=== PATIENT | female | born 1950 | race Caucasian/White ===

== ENCOUNTER → 2016-11-09 | Outpatient (REF) | payer MEDICARE, OTHER | LOC: M SFHCWAGY 10:55 | PROVIDERS: ATTEND Nurse Practitioner Family | DX: Z12.4 Encounter for screening for malignant neoplasm of cervix (principal) ==

== ENCOUNTER → 2016-11-09 | Outpatient (CLI) | payer MEDICARE, OTHER ==
--- NOTE | 2016-11-09 12:34 | REPMRS ---
Patient History The patient states she had a clinical breast exam in 10/2016. Patient is postmenopausal. No known family history of cancer. Taking estrogen for 3 years. Digital Woman Screen Mammo: November 09, 2016 - Exam #: [id number] Bilateral CC and MLO view(s) were taken. Technologist: Kristina Duckworth, Technologist Prior study comparison: November 02, 2015, digital woman screen mammo performed at [facility]. October 12, 2014, digital woman screen mammo performed at [facility]. September 26, 2013, digital woman screen mammo performed at [facility]. FINDINGS: There are scattered fibroglandular densities. There has been no change in the appearance of the mammogram from the prior studies. There is a mild amount of scattered fibroglandular density which is fairly symmetric. There is no interval development of dominant mass, architectural distortion, or clustered microcalcification suggestive of malignancy. ASSESSMENT: BI-RADS/ACR category 1 mammogram. Negative. Recommendation Routine screening mammogram in 1 year (for women over age 40). This mammogram was interpreted with the aid of an FDA-approved computer-aided dectection system. Electronically Signed By: Fredy Gordon MD 11/09/16 5030
== END ==
LOC: M WHC 10:37
PROVIDERS: ATTEND Nurse Practitioner Family
DX: Z12.31 Encounter for screening mammogram for malignant neoplasm of breast (principal); Z78.0 Asymptomatic menopausal state; Z79.890 Hormone replacement therapy; Z12.4 Encounter for screening for malignant neoplasm of cervix; Z12.12 Encounter for screening for malignant neoplasm of rectum
CPT/HCPCS: 82270; G0101; G0123; G0202

== ENCOUNTER → 2017-07-24 | Outpatient (CLI) | payer MEDICARE, OTHER | LOC: M RAD 10:56 | DX: H93.11 Tinnitus, right ear (principal) | CPT/HCPCS: 93880 ==

== ENCOUNTER → 2018-02-12 | Outpatient (CLI) | payer MEDICARE, OTHER | LOC: M WHC 10:59 | DX: Z12.31 Encounter for screening mammogram for malignant neoplasm of breast (principal); Z78.0 Asymptomatic menopausal state; Z92.23 Personal history of estrogen therapy; Z80.0 Family history of malignant neoplasm of digestive organs | CPT/HCPCS: 77067 ==

== ENCOUNTER 2018-07-03 11:44 | Day surgery (SDC) | payer MEDICARE, OTHER ==
[~2018-07-03] VITALS: Ht 157.5 cm; Wt 56.2 kg
[~2018-07-03 11:44] MED LIST: CALC500T44 PO; NS 1,000 ML IV ONE; OYST500T91 PO
[2018-07-03] MEDS ORDERED: LIDOCAINE 2% INJ 100 MG/5 ML SDV (FOR ANES.) As Ordered ONE (14:04)
[2018-07-03] MEDS ORDERED: PROPOFOL 200 MG/20 ML VIAL As Ordered ONE (14:04)
--- NOTE | 2018-07-03 14:23 | ROOR ---
Patient Name: Suzanna Thorne Procedure Date: 07/03/2018 1:58 PM Date of : 1950 Age: 67 Room: [facility] Gender: Female Note Status: Finalized Procedure: Total Colonoscopy to Cecum + Biopsy Polypectomy Indications: Screening in patient at increased risk: Colorectal cancer in brother before age 60 Providers: Micky Cortes MD Referring MD: Benita Restrepo DO Requesting Provider: Medicines: Monitored Anesthesia Care Complications: No immediate complications. Procedure: Pre-Anesthesia Assessment: - The heart rate, respiratory rate, oxygen saturations, blood pressure, adequacy of pulmonary ventilation, and response to care were monitored throughout the procedure. The Colonoscope was introduced through the anus and advanced to the cecum, identified by appendiceal orifice and ileocecal valve. The colonoscopy was performed without difficulty. The patient tolerated the procedure well. The quality of the bowel preparation was excellent. Findings: The perianal and digital rectal examinations were normal. Non-bleeding internal hemorrhoids were found during retroflexion. The hemorrhoids were small and Grade I (internal hemorrhoids that do not prolapse). A small polyp was found at 60 cm proximal to the anus. The polyp was sessile. The polyp was removed with a jumbo cold forceps. Resection and retrieval were complete. The exam was otherwise without abnormality on direct and retroflexion views. Impression: - Non-bleeding internal hemorrhoids. - One small polyp at 60 cm proximal to the anus, removed with a jumbo cold forceps. Resected and retrieved. - The examination was otherwise normal on direct and retroflexion views. - The exam was otherwise normal to the cecum. Recommendation: - Patient has a contact number available for emergencies. The signs and symptoms of potential delayed complications were discussed with the patient. Return to normal activities tomorrow. Written discharge instructions were provided to the patient. - High fiber diet. - Discharge patient to home. - Continue present medications. - Await pathology results. - Telephone GI clinic for pathology results in 1 week. - Repeat colonoscopy in 5 years for surveillance. - Return to referring physician. - Check Portal Online for Path Results.([email or web address]) - The findings and recommendations were discussed with the patient's family. Micky Cortes MD Micky Cortes MD 07/03/2018 2:23:24 PM Electronically signed by Micky Cortes MD Number of Addenda: 0 Note Initiated On: 07/03/2018 1:58 PM Estimated Blood Loss: Estimated blood loss: none.
[2018-07-03 14:58] VITALS: BP 128/64
== END 2018-07-03 14:34 | disposition home or self-care (01) ==
LOC: M OPP 11:44
PROVIDERS: ATTEND Internal Medicine Gastroenterology
DX: K63.5 Polyp of colon (principal); K64.0 First degree hemorrhoids; Z12.11 Encounter for screening for malignant neoplasm of colon; Z80.0 Family history of malignant neoplasm of digestive organs

== ENCOUNTER → 2019-02-13 | Outpatient (REF) | payer MEDICARE, OTHER ==
[~2019-02-13] MED LIST changes: -NS 1,000 ML IV ONE
== END ==
LOC: M PLALAB 11:21
PROVIDERS: ATTEND Nurse Practitioner Family
DX: Z12.4 Encounter for screening for malignant neoplasm of cervix (principal); N95.2 Postmenopausal atrophic vaginitis

== ENCOUNTER → 2019-02-13 | Outpatient (CLI) | payer MEDICARE, OTHER ==
--- NOTE | 2019-02-13 13:27 | REPMRS ---
Patient History The patient states she had a clinical breast exam in February 2019.Family history of colorectal cancer at age 50 in brother. Taking estrogen for 4 years. 3D TOMOSYNTHESIS WAS PERFORMED. [facility] lifetime risk for breast cancer is 5.1%. Digital Woman Screen Mammo: February 13, 2019 - Exam #: [id number] Bilateral CC and MLO view(s) were taken. Technologist: Dot Santiago, Technologist Prior study comparison: February 12, 2018, bilateral digital woman screen mammo performed at [facility] [place]. November 09, 2016, digital woman screen mammo performed at [facility] [place]. FINDINGS: The breast tissue is heterogeneously dense. This may lower the sensitivity of mammography. There has been no change in the appearance of the mammogram from the prior studies. There is a moderate amount of residual fibroglandular tissue which is fairly symmetric. There is no interval development of dominant mass, areas of architectural distortion, or clustered microcalcification typical of malignancy. Assessment: BI-RADS/ACR category 1 mammogram. Negative Mammogram. Recommendation Routine screening mammogram in 1 year (for women over age 40). This mammogram was interpreted with the aid of an FDA-approved computer-aided dectection system. Electronically Signed By: Trace Orellana MD 02/13/19 [id number]
== END ==
LOC: M WHC 11:14
PROVIDERS: ATTEND Nurse Practitioner Family
DX: Z01.419 Encounter for gynecological examination (general) (routine) without abnormal findings (principal); Z12.31 Encounter for screening mammogram for malignant neoplasm of breast; Z80.0 Family history of malignant neoplasm of digestive organs; Z92.23 Personal history of estrogen therapy
CPT/HCPCS: 77063; 77067; G0101; G0123

== ENCOUNTER → 2020-03-18 | Outpatient (CLI) | payer MEDICARE, OTHER ==
--- NOTE | 2020-03-19 08:41 | REPMRS ---
Patient History The patient states she had a clinical breast exam in 2020. Family history of colorectal cancer at age 50 in brother. Taking estrogen for 4 years. 3D TOMOSYNTHESIS WAS PERFORMED. [facility] lifetime risk for breast cancer is 4.8%. Volpara breast density c. Digital Woman Screen Mammo: March 18, 2020 - Exam #: [id number] Bilateral CC and MLO view(s) were taken. Technologist: Niya Lewis, Technologist Prior study comparison: February 13, 2019, bilateral digital woman screen mammo performed at [facility]. February 12, 2018, bilateral digital woman screen mammo performed at [facility]. FINDINGS: The breast tissue is heterogeneously dense. This may lower the sensitivity of mammography. There has been no change in the appearance of the mammogram from the prior studies. There is a moderate amount of residual fibroglandular tissue which is fairly symmetric. There is no interval development of dominant mass, areas of architectural distortion, or clustered microcalcification typical of malignancy. Assessment: BI-RADS/ACR category 1 mammogram. Negative Mammogram. Recommendation Routine screening mammogram in 1 year (for women over age 40). This mammogram was interpreted with the aid of an FDA-approved computer-aided dectection system. Electronically Signed By: Trace Orellana MD 03/18/20 [id number]
== END ==
LOC: M WHC 11:39
PROVIDERS: ATTEND Nurse Practitioner Family
DX: Z12.31 Encounter for screening mammogram for malignant neoplasm of breast (principal); Z80.0 Family history of malignant neoplasm of digestive organs; Z92.23 Personal history of estrogen therapy

== ENCOUNTER → 2021-12-13 | Outpatient (CLI) | payer MEDICARE, OTHER ==
[~2021-12-13] MED LIST changes: -CALC500T44 PO; +OYST500T92 PO
== END ==
LOC: M WHC 13:07
PROVIDERS: ATTEND Obstetrics & Gynecology
DX: Z12.31 Encounter for screening mammogram for malignant neoplasm of breast (principal)

== ENCOUNTER 2022-03-15 10:33 | Day surgery (SDC) | payer MEDICARE, OTHER ==
[~2022-03-15] VITALS: Ht 157.5 cm; Wt 56.7 kg
[~2022-03-15 10:33] MED LIST changes: +ceFAZolin SOD 2 GM in IV 1 EA IV ONE
[2022-03-15] MEDS ORDERED: LR 1,000 ML IV SCH (11:00)
[2022-03-15] MEDS ORDERED: LIDOCAINE 1% MDV 20ML VIAL As Ordered ONE (12:50)
[2022-03-15] MEDS ORDERED: BUPIVACAINE HCL 0.5% 30ML VIAL As Ordered ONE (12:50)
[2022-03-15] MEDS ORDERED: propofoL 200 MG/20 ML VIAL As Ordered ONE (13:23)
[2022-03-15] MEDS ORDERED: ONDANSETRON 4MG 2ML VIAL As Ordered ONE (13:23)
[2022-03-15] MEDS ORDERED: LIDOCAINE 2% 100MG/5ML SDV (FOR ANES.) As Ordered ONE (13:23)
[2022-03-15] MEDS ORDERED: fentaNYL 100 MCG/2 ML INJECTION As Ordered ONE (13:27)
[2022-03-15] MEDS ORDERED: MIDAZOLAM INJ 2MG/2ML VIAL As Ordered ONE (13:28)
[2022-03-15] MEDS ORDERED: HYDR-3713 PO (13:39)
[2022-03-15] MEDS ORDERED: ACETAMINOPHEN 1000MG 100ML IV BAG As Ordered ONE (13:50)
[2022-03-15 15:00] VITALS: BP 122/57
== END 2022-03-15 15:05 | disposition home or self-care (01) ==
LOC: M SDC 10:33
PROVIDERS: ATTEND Podiatrist Foot & Ankle Surgery
DX: M72.2 Plantar fascial fibromatosis (principal)
CPT/HCPCS: 28043; 88305; J1100; J2405

== ENCOUNTER 2023-10-24 08:27 | Day surgery (SDC) | payer MEDICARE, OTHER ==
[~2023-10-24] VITALS: Ht 157.5 cm; Wt 56.4 kg
[~2023-10-24 08:27] MED LIST changes: +HYDR-3713 PO; +NS 1,000 ML IV ONE; -ceFAZolin SOD 2 GM in IV 1 EA IV ONE
[2023-10-24] MEDS ORDERED: propofoL 200 MG/20 ML VIAL As Ordered ONE (10:03)
[2023-10-24 10:55] VITALS: BP 126/72; O2SAT 97
== END 2023-10-24 11:02 | disposition home or self-care (01) ==
LOC: M OPP 08:27
PROVIDERS: ATTEND Internal Medicine Gastroenterology
DX: Z12.11 Encounter for screening for malignant neoplasm of colon (principal); Z80.0 Family history of malignant neoplasm of digestive organs; K64.0 First degree hemorrhoids; K57.30 Diverticulosis of large intestine without perforation or abscess without bleeding